=== PATIENT | female | born 1960 ===

== ENCOUNTER 2018-10-16 07:40 | Outpatient (CLI) | payer OTHER ==
[~2018-10-16] VITALS: Ht 160 cm; Wt 60.8 kg
[~2018-10-16 07:40] MED LIST: SYNTHROID137 MCG PO; VYTORIN 10/20 M1 TAB PO
== END 2018-10-16 08:00 | disposition home or self-care (01) ==
LOC: OFIC 805 07:40
DX: J31.0 Chronic rhinitis (principal); H61.21 Impacted cerumen, right ear; H93.12 Tinnitus, left ear